=== PATIENT | female | born 2000 | race Caucasian/White ===

== ENCOUNTER 2020-02-07 21:08 | Emergency (ER) | payer OTHER, SELFPAY ==
--- NOTE | ~2020-02-07 | XR_ITS ---
EXAMINATION: XR ankle LT min 3V EXAM DATE: 02/07/2020 21:39 INDICATION: Initial encounter following injury, with pain of the left ankle. Twisting injury on stai rs. TECHNIQUE: Left ankle frontal, lateral and oblique projections obtained and reviewed. Comparison is m satya to prior examination from 06/07/2015. FINDINGS: The left ankle mortise appears intact. There are no acute fractures or dislocations ident ified. There is no subcutaneous gas. The soft tissue is unremarkable. There are no radiopaque for eign bodies. IMPRESSION: No acute osseous findings. Reviewed, dictated and finalized at location A. IMPRESSION: No acute osseous findings.
[2020-02-07 21:30] VITALS: BP 115/62; PULSE 73; RESP 16; TEMP 36.9; O2SAT 100
--- NOTE | 2020-02-07 21:44 | ED.LOWEXIN ---
HPI - Extremity Injury (Lower) General Chief Complaint: Extremity Injury, Lower Stated Complaint: L ankle pain Time Seen by Provider: 02/07/20 21:44 Source: patient and RN notes reviewed Mode of arrival: ambulatory Limitations: no limitations History of Present Illness HPI Narrative: Patient states that she was getting ready to go to the gym set up and rolled her ankle she is not sure which way had immediate pain dropped the floor and has not tried walk on it since. complaint: ankle injury and fall Onset (ago): minute(s) (20) Type of Injury: unknown (Twisted) Place: home Severity: moderate Exacerbating factors: weight bearing and movement Context: walking Associated symptoms: swelling and unable to bear weight Other symptoms: none Related Data Home Medications Medication Instructions Recorded Confirmed L norgest/e.estradiol-e.estrad 1 tablet PO DAILY 02/07/20 02/07/20 Allergies Allergy/AdvReac Type Severity Reaction Status Date / Time Penicillins Allergy Flushing Verified 02/07/20 21:27 Review of Systems Review of Systems: All systems reviewed & are unremarkable except as noted in HPI and below PMFSH Surgical History Surgical History (Updated 02/07/20 @ 21:52 by Toy Turcios MD) History of tonsillectomy [place] teeth extracted Social History Social History (Updated 02/07/20 @ 21:52 by Toy Turcios MD) Smoking status: Never smoker Alcohol intake: current Alcohol use details: occasional Substance use: never Exam Const: General: healthy appearing and no acute distress Nutritional Appearance: well nourished Orientation/consciousness: patient oriented x3 Other: female nurse in room during examination. HENMT: Head: normal to inspection Ears: external ears normal Eyes: Conjunctivae: conjunctivae normal Pupils: Equal, round and reactive pupils present EOM: EOMs intact bilaterally Neck: Neck: normal visual inspection Resp: Effort & Inspection: normal respiratory effort Auscultation: clear to auscultation bilaterally Cardio: Rate: regular rate Rhythm: regular rhythm GI: Auscultation: normal bowel sounds Back/Spine/Pelvis: Cervical Spine: cervical ROM normal Thoracic/Lumbar Spine: thoraco-lumbar ROM normal Skin: General skin exam: normal color Rashes: no rashes Neuro: General: patient oriented x3, moves all extremities and no focal motor deficits Speech: normal speech Extrem: Left lower extremity: ankle (Left) Details: tenderness (Moderate) Location: of the anterior talofibular ligament, anteromedially and anterolaterally; not of the lateral malleolus and not of the medial malleolus, swelling Details: laterally, medially and anteriorly and normal ROM; no warmth Psych: Appearance: grossly normal and well kempt Mental Status: mental status grossly normal Affect: normal affect Attitude: cooperative Thought content: Yes Normal thought content present Course Vital Signs Vital signs: Vital Signs Temperature 36.9 C 02/07/20 21:30 Pulse Rate 73 02/07/20 21:30 Respiratory Rate 16 02/07/20 21:30 Blood Pressure 115/62 02/07/20 21:30 Pulse Oximetry 100 02/07/20 21:30 Temperature 36.9 C 02/07/20 21:30 Pulse Rate 73 02/07/20 21:30 Respiratory Rate 14 02/07/20 22:07 Blood Pressure 115/62 02/07/20 21:30 Pulse Oximetry 100 02/07/20 21:30 MDM - Extremity Injury (Lower) Imaging Data Radiologist's impression: IMPRESSION: No acute osseous findings. Reviewed, dictated and finalized at location A. Dictated By: Rj Figueroa MD 02/07/20 [id number] Discharge Plan Discharge Clinical Impression: Ankle sprain and strain Patient Disposition: Home, Self-Care Condition: Stable Instructions: Ankle Sprain (ED) Additional Instructions: Use Tylenol and or Motrin ice and elevate. Wear splint as needed. Prescri
[2020-02-07 22:07] VITALS: RESP 14
== END 2020-02-07 22:09 | disposition home or self-care (01) ==
PROVIDERS: Emergency Provider Emergency Medicine; PCP Internal Medicine
DX: S93.402A Sprain of unspecified ligament of left ankle, initial encounter (principal)
CPT/HCPCS: 29515; 73610; 99282; 99283; L4350

== ENCOUNTER 2023-08-14 01:29 | Day surgery (SDC) | payer OTHER, SELFPAY ==
[2023-08-12 11:34] VITALS: BMI 31.4
[2023-08-14] MEDS: LACTATED RINGERS 1,000 ML 150 ML IV CONT (13:00)
[2023-08-14 13:02] VITALS: BP 126/78; PULSE 103; RESP 16; TEMP 36.9; O2SAT 100
[2023-08-14] MEDS: ONDANSETRON INJ 4 MG/2 ML VIAL IV PUSH (13:02)
--- NOTE | 2023-08-14 13:07 | PM.HPGS ---
History of Present Illness History of Present Illness Consent: Risks, benefits, and alternatives have been discussed and questions answered. Patient agrees to proceed with procedure. Chief complaint: Diarrhea with mucousy stools, fecal incontinence Narrative: Loretta Cadena is a 23 year old female here for first colonoscopy, since June she has not had regular stool and sometimes with leakage. Serology for celiac and IBD panel negative. Review of Systems Constitutional: Constitutional: Denies headache(s) and Denies weakness Eyes: Eyes: Denies blurry vision ENT: Reports Normal hearing present, Denies headache(s) and Denies neck pain Cardiovascular: Cardiovascular: Denies chest pain and Denies dyspnea Respiratory: Respiratory: Denies dyspnea Gastrointestinal: Gastrointestinal: Reports no additional gastrointestinal complaints Genitourinary: Genitourinary: Denies dysuria Musculoskeletal: Musculoskeletal: Denies neck pain Integumentary/Breasts: Skin/Breast: Denies dry skin Neurologic: Reports Normal hearing present, Denies headache(s) and Denies weakness Psychiatric: Psychiatric: Denies anxiety Endocrine: Endocrine: Denies change in body appearance Hematologic/Lymphatic: Hematologic/Lymphatic: Denies easy bleeding Allergic/Immunologic: Allergic/Immunologic: Denies urticaria PMFSH Past Medical History Medical History (Updated 08/14/23 @ 13:08 by Rey Erickson MD) ADHD Diarrhea Irregular heart beat Surgical History Surgical History History of tonsillectomy [place] teeth extracted Social History Social History (Updated 02/03/23 @ 13:21 by Ysabel Borden MA) Smoking status: Never smoker Alcohol intake: current Alcohol use details: occasional Substance use: never Substance use type: does not use Lack of Transportation: No Lack of Food: Never True Current Housing: I Have Housing Concerned About Future Housing: No Difficulty Paying Gas/Electric Bills: No Difficulty Paying for Meds: No Currently Unemployed: No Education: Bachelor's Degree Difficulty w/ Childcare or Family Care: No Living arrangements: with family Occupation/Education: occupation Additional occupation/education comments: Student Gender identity (if verbalized by the patient): Female Sexual Orientation (if Verbalized by the Patient): Straight or Heterosexual Spiritual care concerns: No Meds Home Medications and Allergies Home Medications Medication Instructions Recorded Confirmed Type drospirenone (contraceptive) 4 mg 1 tablet PO DAILY #84 tabs 08/01/23 02/07/24 Rx (28) tablet (Slynd) desogestrel-e.estradiol 0.15 1 tablet PO DAILY #84 tabs 02/26/23 08/12/23 Rx mg-0.02 mg(21)/e.estrad 0.01 mg(5) tablet (Kariva (28)) calcium polycarbophil 625 mg 1 mg PO BID 08/12/23 08/12/23 History tablet (FiberCon) metronidazole 500 mg tablet 500 mg PO Q8H 08/12/23 08/12/23 History Allergies Allergy/AdvReac Type Severity Reaction Status Date / Time Penicillins Allergy Hives Verified 08/14/23 13:01 Vital Signs Vital Signs - 24 hr 08/14/23 13:02 Temperature 98.4 F Pulse Rate 103 H Respiratory Rate 16 Blood Pressure 126/78 Pulse Oximetry 100 Oxygen Delivery Room Air Exam Const: General: comfortable and no acute distress HENMT: Face/Nose/Sinus: Normal nares present Eyes: General: appearance normal, both eyes and all related structures Neck: Neck: no JVD Resp: Auscultation: clear to auscultation bilaterally Cardio: Rate: regular rate Rhythm: regular rhythm GI: Inspection: non-distended GI Palp: Yes Soft to palpation Skin: General skin exam: normal color Neuro: General: gait normal Speech: normal speech Extrem: General: normal to inspection Psych: Mental Status: mental status grossly normal Assessment and Plan Assessment and plan (1) Diarrhea: Code(s): R19.7 - Diarrhea,
--- NOTE | 2023-08-14 13:07 | WPDANESEPPF ---
Anes - Initial Pre Proc Eval Procedure: Operation Date: 08/14/23 14:00 Proposed Procedures p Colonoscopy - Rey Erickson MD Date/Time: 08/14/23 13:07 Surgeon: Rey Erickson MD Pre Op Diagnosis: Diarrhea with mucousy stools, fecal incontinence Patient Data Age: 23 Gender: F Height: 1.7 m Weight: 102.3 kg Last Vital Signs Temp 98.4 F 08/14/23 13:02 Pulse 103 H 08/14/23 13:02 Resp 16 08/14/23 13:02 BP 126/78 08/14/23 13:02 Pulse Ox 100 08/14/23 13:02 O2 Del Method Room Air 08/14/23 13:02 Allergies Allergy/AdvReac Type Severity Reaction Status Date / Time Penicillins Allergy Hives Verified 08/14/23 13:01 Home Medications Medication Instructions Recorded Confirmed Type drospirenone (contraceptive) 4 mg 1 tablet PO DAILY #84 tabs 02/03/23 08/12/23 Rx (28) tablet (Slynd) desogestrel-e.estradiol 0.15 1 tablet PO DAILY #84 tabs 02/26/08/12/23 Rx mg-0.02 mg(21)/e.estrad 0.01 mg(5) tablet (Kariva (28)) calcium polycarbophil 625 mg 1 mg PO BID 08/12/23 08/12/23 History tablet (FiberCon) metronidazole 500 mg tablet 500 mg PO Q8H 08/12/23 08/12/23 History Patient hx anesthesia problems: none Family hx anesthesia problems: none Results Review: All pre-operative results and documents have been reviewed as part of the pre-operative evaluation. [facility] Past Medical History Medical History ADHD Irregular heart beat Surgical History Surgical History History of tonsillectomy [place] teeth extracted Social History Social History (Updated 02/03/23 @ 13:21 by Ysabel Borden MA) Smoking status: Never smoker Alcohol intake: current Alcohol use details: occasional Substance use: never Substance use type: does not use Lack of Transportation: No Lack of Food: Never True Current Housing: I Have Housing Concerned About Future Housing: No Difficulty Paying Gas/Electric Bills: No Difficulty Paying for Meds: No Currently Unemployed: No Education: Bachelor's Degree Difficulty w/ Childcare or Family Care: No Living arrangements: with family Occupation/Education: occupation Additional occupation/education comments: Student Gender identity (if verbalized by the patient): Female Sexual Orientation (if Verbalized by the Patient): Straight or Heterosexual Spiritual care concerns: No Anes - Eval Final PreProcedure Day of Procedure 08/14/23 13:07 Patient weight: normal Heart: regular rate and rhythm Lungs: clear to auscultation Airway: Mallampati scale class II Neurological: alert and oriented Last oral intake: >/= 8 hours ASA classification: II Emergent: no Anesthetic plan: proceed Anesthesia type and monitoring: general GIVS and standard monitoring Results Review: All pre-operative results and documents have been reviewed as part of the pre-operative evaluation. Informed Consent: The patient's anesthetic plan and its attendant risks and benefits were discussed with the patient/family/POA. Questions were solicited and answers provided to the satisfaction of the patient/family/POA.
[2023-08-14 13:23] VITALS: BP 105/72; PULSE 76; RESP 26; O2SAT 99
[2023-08-14 13:33] VITALS: BP 115/69; PULSE 73; RESP 19; O2SAT 100
[2023-08-14 13:43] VITALS: BP 129/82; PULSE 71; RESP 21; O2SAT 100
== END 2023-08-14 13:52 | disposition home or self-care (01) ==
PROVIDERS: PCP Internal Medicine; Visit Provider Internal Medicine Gastroenterology
PROC: 0DJD8ZZ Inspection of Lower Intestinal Tract, Via Natural or Artificial Opening Endoscopic (ICD-10-PCS; CPT 45378; principal; 2023-08-14 14:00)
DX: R19.7 Diarrhea, unspecified (principal)
CPT/HCPCS: 45380; 88305; J2405; J2704; J7120

== ENCOUNTER 2025-07-03 11:04 | Outpatient (CLI) | payer BC, SELFPAY ==
--- OUTSIDE RECORDS SUMMARY | 2025-07-03 11:50 | XMS_ITS | Clinical Summary ---
Author Organization [facility] lin Address [address] [place] [address] Care Team Providers Care Integrative Medicine Physician Name Role Phone Unavailable Primary Care Provider Unavailabl e Social History Tobacco Use Types Packs/Day Years Used Date Smoking Tobacco: Never Assessed Comments Unknown Sex and Gender Information Value Date Recorded Sex Assigned at Not on file Legal Sex Female 12:18 PM EDT Gender Identity Not on file Sexual Orientation Not on file Plan of Treatment Not on file Medical Devices Not on file
--- OUTSIDE RECORDS SUMMARY | 2025-07-03 11:50 | XMS_ITS | Patient Health Record ---
Author Organization [facility] Address [address] [place], [place] [id number] Care Team Providers Care Practice Assistant Name Role Phone DARYL ALBA Unavailable [phone] El Sumner Unavailable Unavailable Reason For Referral No Information Social History Social History Additional Details Category Social Info Options Details Migrated Social History Migrated Social History History of tobacco use : , Smoking Status : Never smoked Plan Of Treatment No Information Insurance Providers Payer Name Payer Address Payer Phone Subscriber Number Group Number Insured Name Patient Relationship to Insured Coverage Start Date Coverage End Date [employer] [address] [place], [place] [id number] CRISTINO EL Natural Child - Insured has Financial Responsibility
--- OUTSIDE RECORDS SUMMARY | 2025-07-03 11:50 | XMS_ITS | Clinical Summary ---
Author Organization [facility] Address [address] [place] [address] Phone Care Team Providers Care Collection Systems Foreman Name Role Phone Unavailable Primary Care Provider Unavailabl e Social History Tobacco Use Types Packs/Day Years Used Date Smoking Tobacco: Never Assessed Comments Unknown Sex and Gender Information Value Date Recorded Sex Assigned at Not on file Legal Sex Female 3:49 PM CDT Gender Identity Not on file Sexual Orientation Not on file Plan of Treatment Health Maintenance Due Date Last Done Comments Hepatitis C Virus (HCV) Screening 1998 TdaP Immunization 1998 Human Papillomavirus (HPV) Immunization (1 - 3-dose series) 2013 Hepatitis B Immunization (1 of 3 - 19+ 3-dose series) 2017 Influenza Immunization (#1) 2025 SARS-COV-2 Immunization ( season) 2025 Respiratory Syncytial Virus (RSV) Immunization (Adult) (1 - 1-dose 75+ series) 2073 Meningococcal Immunization (ACWY) Aged Out No longer eligible based on patient's age to complete this topic Pneumococcal Immunization Combined Aged Out No longer eligible based on patient's age to complete this topic Rotavirus Immunization Aged Out No lo nger eligible based on patient's age to complete this topic
--- OUTSIDE RECORDS SUMMARY | 2025-07-03 11:50 | XMS_ITS | Clinical Summary ---
Author Organization [facility] Address [address] [place] [address] Care Team Providers Care Biochemical Engineer Name Role Phone El Sumner MD Primary Care Provider [phone] Source Comments [facility],non-owned Affiliates and Associated Physician Practices is amultiple site organization consisting of ambulatory clinics and hospital sitesin [place], [place] and [place]. This disclosure is being madepursuant to the Care Everywhere program and may not contain all information available regarding this patient. Last updated 18.[facility] Allergies Active Allergy Reactions Criticality Noted Date Comments Adhesive Sensitivity Urticaria,Rash Medium 10/25/2017 Cephalexin Anaphylaxis High 09/21/2018 Gluten Meal Other 09/21/2018 Sneezing Penicillins Urticaria,Swelling Medium 10/25/2017 Medications * Be aware that medications may not be up to date on this document. Alwaysverify current medications with the patient. levonorgestrel-e thinyl estradiol (FALMINA) 0.1-20 MG-MCG tablet Take 1 tablet by mouth once daily Active Family History Medical History Relation Name Comments Hypertension Maternal Grandmother Relation Name Status Comments Maternal Grandmother Social History Tobacco Use Types Packs/Day Years Used Date Smoking Tobacco: Never Smokeless Tobacco: Never Comments No Sex and Gender Information Value Date Recorded Sex Assigned at Not on file Legal Sex Female 8:51 PM CDT Gender Identity Not on file Sexual Orientation Not on file Last Filed Vital Signs Vital Sign Reading Time Taken Comments Blood Pressure 122/78 06/14/2021 12:54 PM WEB EDITOR Pulse 87 06/14/2021 12:54 PM WEB EDITOR Temperature 36.9 C (98.4 F) 06/14/2021 12:54 PM WEB EDITOR Respiratory Rate 16 06/14/2021 12:54 PM WEB EDITOR Oxygen Saturation 99% 06/14/2021 12:54 PM WEB EDITOR Inhaled Oxygen Concentration - - Weight 68 kg (150 lb) 06/14/2021 12:54 PM WEB EDITOR Height 170.2 cm (5' 7) 06/14/2021 12:54 PM WEB EDITOR Body Mass Index 23.49 06/14/2021 12:54 PM WEB EDITOR Plan of Treatment Health Maintenance Due Date Last Done Comments HIV SCREENING 2013 HEPATITIS C SCREENING 05/26/2016 DTAP/TDAP/TD VACCINES (1 - Tdap) 2017 HEPATITIS B VACCINE (1 of 3 - 19+ 3-dose series) 2017 PAP SMEAR 2019 DEPRESSION SCREENING 07/06/2024 COVID-19 VACCINE (1 - 2024-2 6 season) 2025 INFLUENZA VACCINE (#1) 2025 , 04/02/2019, 05/12/2013 HPV VACCINE (1 - 3-dose SCDM series) 2025 ZOSTER VACCINE (1 of 2) 2048 HIB VACCINE Aged Out No longer eligi ble based on patient's age to complete this topic MENINGOCOCCAL (Group B) VACCINE SHARED DECISION-MAKING Aged Out No longer eligible based on patient's age to complete this topic MENINGOCOCCAL GROUPS A/C/Y/W VACCINE Aged Out No longer eligible b ased on patient's age to complete this topic PNEUMOCOCCAL VACCINE Aged Out No long er eligible based on patient's age to complete this topic [facility] S[facility]F [facility] NO INSURANCE Member Subscriber Plan / Payer (Ef fective for All Dates) Name:Loretta Deleon Member ID:Not on file Relation to Subscriber:Not on file Name:LORETTA DELEON Subscriber ID:Not on file Address: [address] [place] [phone] Payer ID:Not on file Group ID:Not on file Type:Self Pay Address: [place], [place] CIGNA SELF PAY NO INSURANCE Member Subscriber Plan / Payer (Ef fective for All Dates) Name:Loretta Deleon Member ID:Not on file Relation to Subscriber:Not on file Name:LORETTA DELEON Subscriber ID:Not on file Address: [address] [place] [phone] Payer ID:Not on file Group ID:Not on file Type:Self Pay Address: [place], [place] CIGNA SELF PAY NO INSURANCE Member Subscriber Plan / Payer (Ef fective for All Dates) Name:Loretta Deleon Member ID:Not on file Relation to Subscriber:Not on file Name:LORETTA DELEON Subscriber ID:Not on file Address: [address] [place] [phone] Payer ID:Not on file Group ID:Not on file Type:Self Pay Address: [place], [place] Care Teams Biochemical Engineer Relationship Specialty Start Date End Date El Sumner MD [address] [place] [address] PCP - General Internal Medicine 10/25/17
[2025-07-03 11:54] LABS: Strep Group A RT-PCR NOT DETECTED (Negative)
[2025-07-03 12:07] LABS: Influenza A QL RT-PCR Negative (Negative); Influenza B QL RT-PCR Negative (Negative); SARS-CoV-2 RNA PCR Negative (Negative)
== END 2025-07-03 11:05 | disposition home or self-care (01) ==
PROVIDERS: PCP Nurse Practitioner Family; Visit Provider Nurse Practitioner Family
DX: R09.81 Nasal congestion (principal); J02.9 Acute pharyngitis, unspecified
CPT/HCPCS: 87636; 87651